=== PATIENT | female | born 1985 | race Caucasian/White ===

== ENCOUNTER 2016-12-13 17:35 | Emergency (ER) | payer MEDICAID ==
[~2016-12-13] VITALS: Ht 170.2 cm; Wt 79.4 kg
[2016-12-13 17:50] VITALS: BP 122/78
[2016-12-13] MEDS ORDERED: IBUPROFEN 600 MG TAB PO ONE (21:45)
== END 2016-12-13 21:39 | disposition home or self-care (01) ==
LOC: ER 17:40
DX: S01.01XA Laceration without foreign body of scalp, initial encounter (principal); Z91.041 Radiographic dye allergy status; F17.210 Nicotine dependence, cigarettes, uncomplicated; F12.10 Cannabis abuse, uncomplicated; W22.8XXA Striking against or struck by other objects, initial encounter; Y93.89 Activity, other specified; Y92.89 Other specified places as the place of occurrence of the external cause; Y99.8 Other external cause status
CPT/HCPCS: 12002; 70450

== ENCOUNTER 2016-12-22 12:06 | Emergency (ER) | payer MEDICAID ==
[~2016-12-22] VITALS: Ht 170.2 cm; Wt 65.8 kg
[2016-12-22 12:28] VITALS: BP 131/70
== END 2016-12-22 14:09 | disposition home or self-care (01) ==
LOC: ER 12:06
DX: S01.91XD Laceration without foreign body of unspecified part of head, subsequent encounter (principal); Z48.02 Encounter for removal of sutures; Z91.041 Radiographic dye allergy status; F17.210 Nicotine dependence, cigarettes, uncomplicated; F12.10 Cannabis abuse, uncomplicated

== ENCOUNTER 2017-05-07 10:51 | Emergency (ER) | payer MEDICAID ==
[~2017-05-07] VITALS: Ht 170.2 cm; Wt 72.6 kg
[2017-05-07 11:03] VITALS: BP 115/78
== END 2017-05-07 13:44 | disposition home or self-care (01) ==
LOC: ER 10:51
DX: S91.115A Laceration without foreign body of left lesser toe(s) without damage to nail, initial encounter (principal); F17.210 Nicotine dependence, cigarettes, uncomplicated; Z88.8 Allergy status to other drugs, medicaments and biological substances; W25.XXXA Contact with sharp glass, initial encounter; Y93.01 Activity, walking, marching and hiking; Y92.89 Other specified places as the place of occurrence of the external cause; Y99.8 Other external cause status
CPT/HCPCS: 12002

== ENCOUNTER 2018-03-22 21:11 | Emergency (ER) | payer MEDICAID ==
[~2018-03-22] VITALS: Ht 170.2 cm; Wt 80.7 kg
[2018-03-22 21:25] VITALS: BP 102/60
[2018-03-22 22:03] LABS: Basophils # (auto) 0.1 uL; Basophils % (auto) 0.6 % (0.0-2.0); Eosinophils # (auto) 0.2 uL; Eosinophils % (auto) 2.1 % (0.0-7.0); Hematocrit 41.2 % (36.0-46.0); Hemoglobin 13.7 g/dL (12.2-16.2); Lymphocytes % (auto) 27.6 % (10.0-50.0); Mean Corpuscular Hemoglobin 32.5 pg (28.0-32.0); Mean Corpuscular Hgb Conc. 33.4 g/dL (32.0-36.0); Mean Corpuscular Volume 97.5 fL (80.0-100.0); Monocytes # (auto) 0.8 uL; Monocytes % (auto) 7.4 % (0.0-12.0); Neutrophils # (auto) 6.9 uL; Neutrophils % (auto) 62.3 % (37.0-80.0); Nucleated Red Blood Cells % 0.1 %; Platelet Count (auto) 217 10^3/uL (140-450); Red Blood Cells 4.22 10^6/uL (4.0-5.20); Red Cell Distribution Width 13.4 % (11.8-14.3)
[2018-03-22 22:07] LABS: Urine Bacteria NONE SEEN /hpf (None Seen); Urine Blood Negative /uL (Negative); Urine Mucus FEW (None Seen); Urine Specific Gravity 1.016 (1.001-1.035); Urine WBC 3 /hpf (0 - 5)
[2018-03-22 22:15] LABS: Albumin 3.8 g/dL (3.4-5.0); BUN/Creatinine Ratio 14.5; Calcium 8.5 mg/dL (8.5-10.1); Potassium 3.8 mmol/L (3.5-5.1)
[2018-03-22 22:18] LABS: Bilirubin, Total 0.3 mg/dL (0.2-1.0)
[2018-03-22 22:19] LABS: INR 0.93 (0.9-1.15); Partial Thromboplastin Time 30.1 sec (23.78-33.04)
== END 2018-03-23 02:47 | disposition left against medical advice (07) ==
LOC: ER 21:11
DX: K92.2 Gastrointestinal hemorrhage, unspecified (principal); Z53.21 Procedure and treatment not carried out due to patient leaving prior to being seen by health care provider
CPT/HCPCS: 36415; 80053; 81001; 85025; 85610; 85730